=== PATIENT | female | born 1965 | race Caucasian/White ===

== ENCOUNTER 2023-02-22 15:18 | Emergency (ER) | payer OTHER, SELFPAY ==
[2023-02-22 15:19] VITALS: BP 150/85; PULSE 64; RESP 16; TEMP 37; O2SAT 99
--- NOTE | 2023-02-22 15:21 | RAD_ITS ---
EXAM: XR RIGHT ANKLE COMPLETE, 3 OR MORE VIEWS CLINICAL INDICATION: FALL TECHNIQUE: Frontal, lateral and oblique views of the right ankle. COMPARISON: No relevant prior studies available. FINDINGS: BONES/JOINTS: Transverse nondisplaced fractures involve the medial and lateral malleoli. There is also an acute Day fracture involving the base of the fifth metatarsal. No subluxation deformity. SOFT TISSUES: Prominent soft tissue swelling. No radiopaque foreign body. RAD/Ankle min 3 Views IMPRESSION: Acute bimalleolar fracture of the ankle. Acute Day fracture. Soft tissue swelling. Electronically Signed: Sheldon Gibbons MD at 16:01 EDT ,
--- NOTE | 2023-02-22 15:50 | ED.VIS.LOWEX ---
HPI <ADILSON Cole - Last Filed: 02/22/23 17:19> History of Present Illness Chief Complaint: Fall Narrative Narrative: 57-year-old female tripped down one step coming out of [employer] and twisted her right ankle. She has pain and swelling and did not try to ambulate. No head injury. PFSH <ADILSON Cole - Last Filed: 02/22/23 17:19> [facility] Medical History (Updated 02/22/23 @ 17:19 by ADILSON Cole) Depression HTN (hypertension) Home Medications hydrocodone-acetaminophen 5-325mg 5mg-325mg 1 tab PO Q6H PRN pain 3 days #12 tabs 02/22/23 [Rx Last Taken Unknown] Allergy/AdvReac Type Severity Reaction Status Date / Time Penicillins Allergy Anaphylaxis Verified 02/22/23 15:18 Social History Smoking Status: Never smoker ROS <ADILSON Cole - Last Filed: 02/22/23 17:19> ROS ED ROS Narrative Neuro: Negative for motor/sensory dysfunction. Skin: Negative for wound. Musc: Positive for ankle pain, swelling, trauma. Heme: Negative for easy bruising, bleeding, lymphadenopathy. EXAM <ADILSON Cole - Last Filed: 02/22/23 17:19> Physical Exam Narrative Exam Narrative: CONST: Patient sitting in no acute distress. EYES: Normal inspection. NECK: Normal inspection. RESP: No respiratory distress, CTAB. CVS: Regular rate and rhythm, no murmur, no gallop. SKIN: Color normal, no rash, warm, dry, intact. EXTREMITIES: Significant soft tissue swelling, developing ecchymosis, and tenderness over the right lateral malleolus. Also tender over the medial malleolus. No tenderness of the posterior aspect of the ankle and Achilles is intact. Proximal fibula and foot are nontender. Normal sensation, 2+ DP pulse. NEURO: Oriented x4. PSYCH: Normal affect. Const Vital Signs: 02/22/23 15:19 02/22/23 16:02 02/22/23 17:24 Temperature 98.6 F Temperature Source Temporal Pulse Rate 64 84 Respiratory Rate 16 16 Respiratory Effort Normal Non-Labored Respiratory Depth Normal Respiratory Pattern Normal Blood Pressure 150/85 H 127/69 H Blood Pressure Mean 106 Pulse Ox 99 97 Oxygen Delivery Method Room Air <Dr. Adriano Eubanks, - Last Filed: 02/23/23 00:25> Physical Exam Const Vital Signs: 02/22/23 15:19 02/22/23 16:02 02/22/23 17:24 Temperature 98.6 F Temperature Source Temporal Pulse Rate 64 84 Respiratory Rate 16 16 Respiratory Effort Normal Non-Labored Respiratory Depth Normal Respiratory Pattern Normal Blood Pressure 150/85 H 127/69 H Blood Pressure Mean 106 Pulse Ox 99 97 Oxygen Delivery Method Room Air [facility] <ADILSON Cole - Last Filed: 02/22/23 17:19> [facility] Narrative Medical decision making narrative: History gathered from: Patient and Patient had mechanical fall rolled her right ankle. He has significant pain and swelling over the lateral malleolus and pain with palpation of the medial malleolus. Neurovascularly intact. X-ray shows bimalleolar fracture and acute Day fracture. Case was discussed with orthopedics who agreed with a sugar-tong splint. I personally applied the Ortho-Glass splint and she is neurovascular intact after application. We discussed signs of compartment syndrome that would warrant immediate removal of the splint and return to the ER. Patient is out of town and states she will call her PCP pain, crutches and advised complete nonweightbearing. She was discharged in stable condition. Differential: Ankle sprain, ankle fracture, Achilles rupture Radiography Diagnostic Testing: Clinical Impression(s) from Imaging Studies Ankle X-Ray 02/22/23 15:21 IMPRESSION: Acute bimalleolar fracture of the ankle. Acute Day fracture. Soft tissue swelling. Electronically Signed: Sheldon Gibbons MD at 16:01 EDT , <Dr. Adriano Eubanks, - Last Filed: 02/23/23 00:25> [facility] Radiography Diagnostic Testing: Clinical Impression(s) from Imaging Studies Ankle X-Ray 02/22/23 15:21 IMPRESSION: Acute bimalleolar fracture of the ankle. Acute Day fracture. Soft tissue swelling. Electronically Signed: Sheldon Gibbons MD at 16:01 EDT , I personally read and reviewed the patient's imaging. Ankle x-ray by my read shows evidence of an acute bimalleolar fracture. Treatment and Re-Evaluation Narrative: ED attending note: I evaluated the patient in conjunction with the KARL. I agree with his/her statements and above findings. I have personally performed a face to face assessment of the patient and have reviewed the KARL Note. I performed a substantive portion of the visit including all aspects of the following. I personally saw the patient performed chart review, physical exam, reviewed labs, imaging (if obtained), and formulated a treatment and management plan. Exam: Nursing triage notes reviewed, Vital signs reviewed Constitutional: please see mdm HENT: MMM Extremities: No edema, compartments are soft, no obvious deformities ankle, TTP over right ankle. Neuro: Intact sensation L1-S1 dermatomal distributions. Intact 5/5 strength in hip flexion (T12-L3). Knee extension (L2-L4). Ankle dorsiflexion (L4-L5). Ankle plantar flexion (S1). Great toe extension (L5). 2+ patellar and Achilles DTRs. Skin: No rash or lesions noted, no evidence of open fracture MDM/plan: Patient was hemodynamically stable, afebrile, nontoxic-appearing. Right lower extremity is neurovascularly intact. X-ray was obtained and showed evidence of bimalleolar fracture as well as a Day fracture. We did consult orthopedics recommended splinting and close prompt follow-up. We gave narcotic pain medicine for home-going as well as return precautions and follow-up instructions. Chief Complaint: Ankle pain External records reviewed: No recent advanced imaging of the involved extremity I considered the following differential diagnosis: Ankle fracture, dislocation, ankle sprain Factors affecting care: None Social determinants of health: None History obtained from others: The patient's Shared decision making: I will have a discussion with the patient and or visitors regarding risk/benefits of further testing or admission. They will be made aware of of the risk/benefits inherent in this decision they will be given the opportunity to voice understanding. Consults: Orthopedic surgery Discharge Plan Triage Chief Complaint: Fall ED Midlevel Provider: Sandhya Bagley ED Provider: Adriano Eubanks Dx/Rx/DC Orders Clinical Impression: Bimalleolar fracture of right ankle, Closed nondisplaced fracture of fifth right metatarsal bone Instructions: ED Ankle Fracture Prescriptions: New hydrocodone-acetaminophen 5-325 mg tablet 1 tab PO Q6H PRN (Reason: pain) 3 Days Qty: 12 0RF Primary Care Provider: LIMA GILLESPIE MD Referrals: Karl Diaz MD [Med Staff - Active Staff] - Twin Rios MD [Med Staff - Active Staff] - [facility] Doctor,Out of [Non-Staff] - Activity Restrictions/Additional Instructions: You have a bimalleolar ankle fracture which means both of the bones on either side are broken. This may require surgery to fix. A splint was placed on there which needs to stay clean and dry, use the crutches and do not put any weight on your leg, and call Dr. Diaz for a follow-up appointment. Disposition Disposition: Home, Self Care Discharge Date/Time: 02/22/23 17:25
[2023-02-22] MEDS: HYDROcodone Bitartrate/Apap 5/325 Tablet PO (16:01)
[2023-02-22 16:02] VITALS: BMI 18.6
--- NOTE | 2023-02-22 16:34 | CONS.ORTHO ---
HPI Consult Data Date of Consult: 02/22/23 HPI Narrative HPI Narrative: ROSITA FERNÁNDEZ, is a 57 F who presents tripped and has ankle fracture and base of 5th MT fracture per ADILSON Arthur today 434pm. closed and NVI per the PA> PFS Medical History (Updated 02/22/23 @ 16:04 by Sujey Womack) Depression HTN (hypertension) Home Medications hydrocodone-acetaminophen 5-325mg 5mg-325mg 1 tab PO Q6H PRN PRN Pain 3 days #12 TABLETS 02/22/23 [Rx Last Taken Unknown] Allergy/AdvReac Type Severity Reaction Status Date / Time Penicillins Allergy Anaphylaxis Verified 02/22/23 15:18 Social History Smoking Status: Never smoker Vital Signs Vital Signs Vital Signs: 02/22/23 15:19 02/22/23 16:02 Temperature 98.6 F Temperature Source Temporal Pulse Rate 64 Respiratory Rate 16 Respiratory Effort Normal Non-Labored Respiratory Depth Normal Respiratory Pattern Normal Blood Pressure 150/85 H Blood Pressure Mean 106 Pulse Ox 99 Oxygen Delivery Method Room Air Weight Weight: 95 lb Body Mass Index (BMI) 18.6 Radiology Impression Ankle X-Ray 02/22/23 15:21 IMPRESSION: Acute bimalleolar fracture of the ankle. Acute Day fracture. Soft tissue swelling. Electronically Signed: Sheldon Gibbons MD at 16:01 EDT , Assessment & Plan Assessment/Plan (1) Bimalleolar fracture of right ankle: PLAN: 57 F amber ankle fracture. Unstable, requires ORIF of the ankle, likely non op for base of 5th MT fracture. Asked to be splinted, elevate, NWB with crutches and FU in clinic tomorrow morning. Sandhya understand no further questions or concerns. PLAN: Plan 57 F amber ankle fracture. Unstable, requires ORIF of the ankle, likely non op for base of 5th MT fracture. Asked to be splinted, elevate, NWB with crutches and FU in clinic tomorrow morning. Sandhya understand no further questions or concerns.
[2023-02-22 17:24] VITALS: BP 127/69; PULSE 84; RESP 16; O2SAT 97
== END 2023-02-22 17:25 | disposition home or self-care (01) ==
LOC: ED 16:18
PROVIDERS: Emergency Provider Emergency Medicine; Visit Provider Emergency Medicine
DX: S82.841A Displaced bimalleolar fracture of right lower leg, initial encounter for closed fracture (principal); S92.354A Nondisplaced fracture of fifth metatarsal bone, right foot, initial encounter for closed fracture; I10 Essential (primary) hypertension; W10.9XXA Fall (on) (from) unspecified stairs and steps, initial encounter; Y92.89 Other specified places as the place of occurrence of the external cause
CPT/HCPCS: 29515; 73610; 99284